=== PATIENT | female | born 1955 | race Caucasian/White ===

== ENCOUNTER 2019-12-19 05:09 | Inpatient (IN) | payer BC ==
[~2019-12-19] VITALS: Ht 162.6 cm; Wt 64.9 kg
[2019-12-19] MEDS ORDERED: ONDANSETRON HCL/PF - ER 4 MG/2 ML VIAL IV ONE (05:30)
[2019-12-19] MEDS ORDERED: ONDANSETRON HCL/PF 4 MG/2 ML VIAL ONE (05:33)
[2019-12-19 05:36] LABS: BASOPHILS % (AUTO) 0.4 % (0.0-2.0); EOSINOPHILS % (AUTO) 0.9 % (0.0-6.0); HEMATOCRIT 46 % (33-45); HEMOGLOBIN 15.9 g/dL (11.5-14.8); LYMPHOCYTES # (AUTO) 1.2 /CMM (0.8-4.8); LYMPHOCYTES % (AUTO) 12.8 % (20.0-44.0); MEAN CORPUSCULAR HGB CONC 34 g/dl (31.0-36.0); MEAN CORPUSCULAR VOLUME 96 fL (82-100); MONOCYTES # (AUTO) 0.5 /CMM (0.1-1.30); MONOCYTES % (AUTO) 5.1 % (2.0-12.0); NEUTROPHILS # (AUTO) 7.8 /CMM (1.8-8.9); NEUTROPHILS % (AUTO) 80.8 % (43.0-81.0); PLATELET COUNT (AUTO) 179 /CMM (150-450); RED BLOOD CELL COUNT(AUTO) 4.79 MIL/uL (4.0-5.2); WHITE BLOOD COUNT (AUTO) 9.7 K/uL (4.3-11.0)
[2019-12-19 05:44] LABS: CALCIUM, SERUM 10.2 mg/dL (8.5-10.1); CARBON DIOXIDE 25 mmol/L (21-32); CHLORIDE 103 mmol/L (98-107); CREATININE 0.9 mg/dL (0.6-1.3); GLUCOSE 123 mg/dL (74-106); POTASSIUM 3.6 mmol/L (3.5-5.1); SODIUM SERUM 140 mmol/L (136-145); UREA NITROGEN, BLOOD 13 mg/dL (7-18)
[2019-12-19 05:50] LABS: ALANINE AMINOTRANSFERASE 58 U/L (12-78); ALBUMIN 4.4 g/dL (3.4-5.0); ALKALINE PHOSPHATASE 79 U/L (46-116); ASPARTATE AMINOTRANSFERASE 39 U/L (15-37); BILIRUBIN,DIRECT 0.3 mg/dL (0.0-0.2); BILIRUBIN,TOTAL 1.3 mg/dL (0.2-1.0); TOTAL PROTEIN, SERUM 7.5 g/dL (6.4-8.2)
[2019-12-19 06:30] LABS: APPEARANCE,URINE CLEAR (CLEAR); BILIRUBIN,URINE NEGATIVE (NEGATIVE); BLOOD, URINE SMALL Ery/uL (NEGATIVE); COLOR,URINE YELLOW (YELLOW); KETONES,URINE TRACE (NEGATIVE); LEUKOCYTE ESTERASE ,URINE NEGATIVE (NEGATIVE); NITRITE, URINE NEGATIVE (NEGATIVE); PH,URINE 6.5 (5.0-8.0); PROTEIN,URINE NEGATIVE (NEGATIVE); UGLUCOSE NEGATIVE (NEGATIVE)
[2019-12-19] MEDS ORDERED: ASPIRIN 325 MG TABLET PO ONE (06:30)
[2019-12-19] MEDS ORDERED: ASPIRIN 325 MG TABLET ONE (06:35)
[2019-12-19 06:41] LABS: BACTERIA,URINE None seen /HPF (None Seen); RBC,URINE 0-2 /HPF (0-2); SQUAMOUS EPITHELIAL CELL,UR Few /HPF (None Seen); WBC,URINE 0-2 /HPF (0-3)
[2019-12-19 07:08] LABS: SERUM AMMONIA < 10 umol/L (11-32)
[2019-12-19] MEDS ORDERED: ONDANSETRON HCL/PF 4 MG/2 ML VIAL IVP PRN (09:00)
[2019-12-19] MEDS ORDERED: MAG HYDROX/AL HYDROX/SIMETH 30 ML UDC PO PRN (09:00)
[2019-12-19] MEDS ORDERED: ACETAMINOPHEN 325 MG TABLET PO PRN (09:00)
[2019-12-19] MEDS ORDERED: Z GUARD REMEDY 2 OZ OINT TP PRN (09:00)
[2019-12-19] MEDS ORDERED: MAGNESIUM HYDROXIDE 30 ML UDC PO PRN (09:00)
[2019-12-19 13:23] VITALS: BP 150/85
[2019-12-19] MEDS: LEVOFLOXACIN 750 MG /D5W 150ML 750 MG in PREMIX 1 EA IV SCH (14:53)
[2019-12-19 16:00] VITALS: BP 121/79
[2019-12-19] MEDS: METRONIDAZOLE 500MG/ NS 100ML 500 MG in PREMIX 1 EA IV SCH ×2 (17:44→20:20)
[2019-12-19 20:00] VITALS: BP 124/64
[2019-12-20] MEDS: METRONIDAZOLE 500MG/ NS 100ML 500 MG in PREMIX 1 EA IV SCH ×4 (02:06→19:46)
[2019-12-20 04:00] VITALS: BP 122/65
[2019-12-20 06:58] LABS: BASOPHILS % (AUTO) 0.3 % (0.0-2.0); HEMATOCRIT 41 % (33-45); LYMPHOCYTES # (AUTO) 1.2 /CMM (0.8-4.8); LYMPHOCYTES % (AUTO) 25.9 % (20.0-44.0); MEAN CORPUSCULAR HGB CONC 34 g/dl (31.0-36.0); MEAN CORPUSCULAR VOLUME 96 fL (82-100); MONOCYTES # (AUTO) 0.4 /CMM (0.1-1.30); MONOCYTES % (AUTO) 8.8 % (2.0-12.0); NEUTROPHILS # (AUTO) 2.8 /CMM (1.8-8.9); PLATELET COUNT (AUTO) 149 /CMM (150-450); RED BLOOD CELL COUNT(AUTO) 4.25 MIL/uL (4.0-5.2); WHITE BLOOD COUNT (AUTO) 4.4 K/uL (4.3-11.0)
[2019-12-20 07:03] LABS: CALCIUM, SERUM 9.1 mg/dL (8.5-10.1); CREATININE 0.8 mg/dL (0.6-1.3); MAGNESIUM 1.9 mg/dL (1.8-2.4); PHOSPHORUS 3.5 mg/dL (2.5-4.9); POTASSIUM 3.5 mmol/L (3.5-5.1)
[2019-12-20 07:14] LABS: THYROID STIMULATING HORMONE 4.982 uIU/mL (0.358-3.74)
[2019-12-20 08:00] VITALS: BP 136/64
[2019-12-20] MEDS ORDERED: CHOL200076 PO (08:10)
[2019-12-20] MEDS ORDERED: PYRI100T10 PO (08:10)
[2019-12-20] MEDS ORDERED: ROSU40TA23 PO (08:10)
[2019-12-20] MEDS ORDERED: LOSA50TA39 PO (08:10)
[2019-12-20] MEDS ORDERED: HYDR12.55 PO (08:10)
[2019-12-20] MEDS ORDERED: CYAN-51 PO (08:10)
[2019-12-20] MEDS ORDERED: ASPI-1169 PO (08:10)
[2019-12-20] MEDS ORDERED: OMEG-72 PO (08:10)
[2019-12-20] MEDS: LEVOFLOXACIN 750 MG /D5W 150ML 750 MG in PREMIX 1 EA IV SCH (12:58)
[2019-12-20] MEDS ORDERED: Medication Not On Formulary EA (Omega-3 Acid Ethyl Esters 1 GM) PO SCH (13:00)
[2019-12-20] MEDS: ASPIRIN 81 MG TAB.CHEW PO SCH (13:08)
[2019-12-20] MEDS: CHOLECALCIFEROL 1,000 UNIT TABLET (VIT D3) PO SCH (13:09)
[2019-12-20] MEDS: CYANOCOBALAMIN 500 MCG TABLET PO SCH (13:11)
[2019-12-20] MEDS: PYRIDOXINE HCL 50 MG TABLET PO SCH (13:20)
[2019-12-20] MEDS ORDERED: FEE PK DOSING 1 MIN EA MC ONE (15:05)
[2019-12-20 16:00] VITALS: BP 128/72
[2019-12-20] MEDS: VANCOMYCIN 0.75 GM in IV D5W 250 ML IV SCH (16:20)
[2019-12-20] MEDS ORDERED: GADOTERIDOL 279.3 MG/ML VIAL IV ONE (16:46)
[2019-12-20] MEDS: LOSARTAN POTASSIUM 50 MG TABLET PO SCH (17:10)
[2019-12-20 20:00] VITALS: BP 122/79
[2019-12-21] VITALS: BP 131/69
[2019-12-21] MEDS: METRONIDAZOLE 500MG/ NS 100ML 500 MG in PREMIX 1 EA IV SCH ×3 (01:48→14:07)
[2019-12-21 04:00] VITALS: BP 139/68
[2019-12-21] MEDS: VANCOMYCIN 0.75 GM in IV D5W 250 ML IV SCH ×2 (04:24→16:08)
[2019-12-21 06:25] LABS: BASOPHILS % (AUTO) 0.8 % (0.0-2.0); EOSINOPHILS % (AUTO) 2.4 % (0.0-6.0); HEMATOCRIT 41 % (33-45); HEMOGLOBIN 14.2 g/dL (11.5-14.8); LYMPHOCYTES # (AUTO) 1.2 /CMM (0.8-4.8); LYMPHOCYTES % (AUTO) 27.5 % (20.0-44.0); MEAN CORPUSCULAR HGB CONC 35 g/dl (31.0-36.0); MEAN CORPUSCULAR VOLUME 96 fL (82-100); MONOCYTES # (AUTO) 0.4 /CMM (0.1-1.30); MONOCYTES % (AUTO) 8.5 % (2.0-12.0); NEUTROPHILS # (AUTO) 2.7 /CMM (1.8-8.9); NEUTROPHILS % (AUTO) 60.8 % (43.0-81.0); PLATELET COUNT (AUTO) 147 /CMM (150-450); RED BLOOD CELL COUNT(AUTO) 4.31 MIL/uL (4.0-5.2); WHITE BLOOD COUNT (AUTO) 4.4 K/uL (4.3-11.0)
[2019-12-21 06:37] LABS: CALCIUM, SERUM 9.4 mg/dL (8.5-10.1); CREATININE 0.8 mg/dL (0.6-1.3); POTASSIUM 3.6 mmol/L (3.5-5.1)
[2019-12-21 08:00] VITALS: BP 129/72
[2019-12-21] MEDS: CYANOCOBALAMIN 500 MCG TABLET PO SCH (08:48)
[2019-12-21] MEDS: ASPIRIN 81 MG TAB.CHEW PO SCH (08:48)
[2019-12-21] MEDS: PYRIDOXINE HCL 50 MG TABLET PO SCH (08:48)
[2019-12-21] MEDS: CHOLECALCIFEROL 1,000 UNIT TABLET (VIT D3) PO SCH (08:48)
[2019-12-21 12:00] VITALS: BP 133/68
[2019-12-21] MEDS: LEVOFLOXACIN 750 MG /D5W 150ML 750 MG in PREMIX 1 EA IV SCH (12:05)
[2019-12-21 16:00] VITALS: BP 118/76
[2019-12-21] MEDS ORDERED: ATORVASTATIN 40 MG TABLET PO SCH (18:00)
[2019-12-21] MEDS ORDERED: HYDROCHLOROTHIAZIDE 25 MG TABLET PO SCH (18:00)
[2019-12-21 18:07] VITALS: BP 118/76
[2019-12-21] MEDS: LOSARTAN POTASSIUM 50 MG TABLET PO SCH (18:07)
[2019-12-21] MEDS ORDERED: LEVO750T46 PO (18:47)
[2019-12-21] MEDS ORDERED: METR-147 PO (18:47)
== END 2019-12-21 20:45 | disposition home or self-care (01) | DRG 391 ==
LOC: ER 05:12 → TELE1 10:17 → MEDSG1 12-20 04:12 → TELE1 12-20 14:01
PROVIDERS: ADMIT Nurse Practitioner Acute Care; ATTEND Nurse Practitioner Acute Care
DX: K57.32 Diverticulitis of large intestine without perforation or abscess without bleeding (principal); G93.41 Metabolic encephalopathy; I21.A1 Myocardial infarction type 2; I50.32 Chronic diastolic (congestive) heart failure; A08.4 Viral intestinal infection, unspecified; E78.5 Hyperlipidemia, unspecified; I25.10 Atherosclerotic heart disease of native coronary artery without angina pectoris; E86.0 Dehydration; Z90.49 Acquired absence of other specified parts of digestive tract; Z95.1 Presence of aortocoronary bypass graft; I11.0 Hypertensive heart disease with heart failure; Z88.0 Allergy status to penicillin; I25.2 Old myocardial infarction; I34.0 Nonrheumatic mitral (valve) insufficiency; R40.2413 Glasgow coma scale score 13-15, at hospital admission; G43.909 Migraine, unspecified, not intractable, without status migrainosus
CPT/HCPCS: 36415; 70450-TC; 70553-TC; 71045-TC; 80048-TC; 80061-TC; 80076-TC; 80305; 81000-TC; 82140-TC; 83605-TC; 83735-TC; 84100-TC; 84443-TC; 84484-TC; 85025-TC; 87040-TC; 87081-TC; 87086-TC; 92611-TC; 93307-TC; 93880-TC; 95819-TC; 97116-TC; 97530-TC; A4216; A9579; G0378; J1956; J2405; J3370; J3490; J7040; J7050; J7060